=== PATIENT | female | born 1965 | race Hispanic/Latino ===

== ENCOUNTER 2018-06-06 09:09 | Emergency (ER) | payer BC ==
[~2018-06-06 09:09] MED LIST: IRBE150T27 PO; LEVO112T7 PO; OXYB5TAB PO
[2018-06-06 10:08] LABS: BASOPHILS % (AUTO) 0.8 % (0.0-5.0); EOSINOPHILS % (AUTO) 1.5 % (0.0-8.0); HEMATOCRIT 42.6 % (36-48); LYMPHOCYTES % (AUTO) 29.4 % (21.0-51.0); MEAN CORPUSCULAR HEMOGLOBIN 28.2 pg (27.0-33.0); MEAN CORPUSCULAR HGB CONC 33.5 g/dL (32.0-36.0); MEAN CORPUSCULAR VOLUME 84.2 fL (79-99); MONOCYTES % (AUTO) 5.3 % (3.0-13.0); NUCLEATED RED BLOOD CELLS 0.1 % (0.0-0.19); PLATELET COUNT (AUTO) 194 K/uL (130-400); RED BLOOD CELL COUNT(AUTO) 5.06 MIL/uL (4.00-5.50); RED CELL DISTRIBUTION WIDTH 12.9 % (11.0-15.5); WHITE BLOOD COUNT (AUTO) 4.6 K/uL (4.8-10.8)
[2018-06-06 10:22] LABS: CREATININE 0.7 mg/dL (0.5-1.5); INR 0.95 (0.85-1.15); PARTIAL THROMBOPLASTIN TIME 26.4 SEC (26.3-35.5); POTASSIUM 3.8 mmol/L (3.5-5.1)
[2018-06-06 10:26] LABS: ALBUMIN 3.5 g/dL (3.5-5.0); BILIRUBIN,TOTAL 0.5 mg/dL (0.2-1.0); TOTAL PROTEIN, SERUM 7.3 g/dL (6.0-8.3)
== END 2018-06-06 12:39 | disposition home or self-care (01) ==
LOC: EDH 09:09
DX: R07.89 Other chest pain (principal); I10 Essential (primary) hypertension; E07.9 Disorder of thyroid, unspecified; Z98.51 Tubal ligation status; Z98.890 Other specified postprocedural states
CPT/HCPCS: 36415; 71045; 80053; 84484; 85025; 85610; 85730; 93005

== ENCOUNTER → 2020-01-01 | Outpatient (CLI) | payer OTHER ==
[~2020-01-01] MED LIST changes: +IRBE150T24 PO; -IRBE150T27 PO; +OXYB-66 PO; -OXYB5TAB PO
== END | disposition home or self-care (01) ==
LOC: RAH 11:05
PROVIDERS: ATTEND Internal Medicine Nephrology
DX: Z13.6 Encounter for screening for cardiovascular disorders (principal)
CPT/HCPCS: 75571

== ENCOUNTER → 2023-01-13 | Outpatient (CLI) | payer BC ==
[~2023-01-13] MED LIST changes: +IOHEXOL 350 MG/ML 100ML INFUS..BTL IV ONE; +METOPROLOL TARTRATE 1 MG/ML 5ML VIAL IV ONE
== END | disposition home or self-care (01) ==
LOC: RAH 11:13
PROVIDERS: ATTEND Student in an Organized Health Care Education/Training Program
DX: R94.31 Abnormal electrocardiogram [ECG] [EKG] (principal)
CPT/HCPCS: 75574; J3490; Q9967

== ENCOUNTER → 2023-05-11 | Outpatient (CLI) | payer BC, OTHER ==
[~2023-05-11] MED LIST changes: +AMLO2.5T4 PO; +ASPI-1197 PO; +ATOR40TA71 PO; +CELE-125 PO; +ERGO500093 PO; -IOHEXOL 350 MG/ML 100ML INFUS..BTL IV ONE; -IRBE150T24 PO; +IRBE150T34 PO; +LEVO112T4 PO; -LEVO112T7 PO; +METO25TA3 PO; -METOPROLOL TARTRATE 1 MG/ML 5ML VIAL IV ONE; +OMEP-420 PO; -OXYB-66 PO; +OXYB15TA19 PO; +SULF500T8 PO
== END | disposition home or self-care (01) ==
LOC: SHCH 08:49
PROVIDERS: ATTEND Student in an Organized Health Care Education/Training Program
DX: I25.10 Atherosclerotic heart disease of native coronary artery without angina pectoris (principal); I25.83 Coronary atherosclerosis due to lipid rich plaque; R07.89 Other chest pain; I10 Essential (primary) hypertension; E78.5 Hyperlipidemia, unspecified; Z79.82 Long term (current) use of aspirin; Z79.899 Other long term (current) drug therapy
CPT/HCPCS: 93880

== ENCOUNTER → 2024-02-29 | Outpatient (CLI) | payer BC, OTHER ==
--- NOTE | 2024-02-29 14:08 | HMCIMG ---
CHEST 2VWS HISTORY: Essential pulmonary hypertension COMPARISON: 02/16/2023 FINDINGS: Frontal and lateral projections of the chest were obtained. Right lower lung pulmonary infiltrates are seen. The heart is not enlarged. No evidence of aortic calcification is seen. Degenerative changes are seen of the thoracolumbar spine. IMPRESSION: 1. No acute pulmonary infiltrates.
== END | disposition home or self-care (01) ==
LOC: RAH 12:58
PROVIDERS: ATTEND Internal Medicine Nephrology
DX: I10 Essential (primary) hypertension (principal); M47.815 Spondylosis without myelopathy or radiculopathy, thoracolumbar region; I27.20 Pulmonary hypertension, unspecified
CPT/HCPCS: 71046

== ENCOUNTER → 2024-12-14 | Outpatient (CLI) | payer BC, OTHER ==
--- NOTE | 2024-12-14 16:03 | HMCIMG ---
FACIAL BONES COMP 3+VWS REASON: BRUSINING FOR FACE, RIGHT SIDE, S/P FALL TECHNIQUE: 4 views were obtained. FINDINGS: There is no evidence of fracture or dislocation. There is no joint effusion. The soft tissues appear unremarkable. There is no evidence of a radiopaque foreign body. There is mild osteopenia. IMPRESSION: No acute findings. Mild osteopenia
--- NOTE | 2024-12-15 07:08 | HMCIMG ---
EXAM: CR Right Knee, 3 views. CLINICAL HISTORY: Pain. COMPARISON: None provided. FINDINGS: No acute fracture or aggressive appearing osseous lesion. Joint spaces are reduced. Osteophytic lipping of articular margin is noted. There is no joint effusion appreciated. The soft tissues are unremarkable. IMPRESSION: Mild osteoarthritis /[place]
--- NOTE | 2024-12-15 07:08 | HMCIMG ---
EXAM: CR Right Ankle, 3 views. CLINICAL HISTORY: Pain. COMPARISON: None provided. FINDINGS: No acute fracture or aggressive appearing osseous lesion. Generalized osteopenia is seen. Joint spaces are within normal limits. No radiographic evidence of joint effusion. Soft tissue swelling is seen around ankle joint. IMPRESSION: Generalized osteopenia is seen. Soft tissue swelling is seen around ankle joint. /[place]
== END | disposition home or self-care (01) ==
LOC: RAH 13:37
PROVIDERS: ATTEND Internal Medicine Nephrology
DX: M17.11 Unilateral primary osteoarthritis, right knee (principal); M25.471 Effusion, right ankle; M85.89 Other specified disorders of bone density and structure, multiple sites; G50.1 Atypical facial pain; M25.571 Pain in right ankle and joints of right foot; M25.561 Pain in right knee
CPT/HCPCS: 70150; 73562; 73610